=== PATIENT | male | born 1965 | race Caucasian/White ===

== ENCOUNTER 2020-05-28 20:21 | Inpatient (IN) | payer BC ==
[~2020-05-28] VITALS: Ht 175.3 cm; Wt 80.0 kg
--- NOTE | 2020-05-28 20:48 | NUR ---
pt placed into room 12 with precautions and hepa filter.
[2020-05-28] MEDS ORDERED: normal saline 1000ml 1,000 ML IV ONE (21:15)
[2020-05-28 21:32] LABS: BASOPHILS % (AUTO) 0.3 % (0-1); EOSINOPHILS % (AUTO) 0.4 % (0-6); HEMOGLOBIN 15.8 g/dl (14.0-17.9); LYMPHOCYTES # (AUTO) 0.5 X10'3 (1.1-4.8); LYMPHOCYTES % (AUTO) 19.1 % (21-51); MEAN CORPUSCULAR HEMOGLOBIN 30.1 PG (27.0-31.0); MEAN CORPUSCULAR HGB CONC 34.3 g/dL (33.0-36.5); MEAN CORPUSCULAR VOLUME 87.5 FL (78-98); MEAN PLATELET VOLUME 8.1 FL (7.4-10.4); MONOCYTES # (AUTO) 0.2 X10'3 (0-0.9); MONOCYTES % (AUTO) 8.4 % (2-12); NEUTROPHILS % (AUTO) 71.8 % (42-75); PLATELET COUNT 118 X10'3 (140-440); RED BLOOD COUNT 5.26 X10'6 (4.70-6.10); RED CELL DISTRIBUTION WIDTH 12.9 % (11.5-14.5); WHITE BLOOD COUNT 2.7 X10'3 (4.5-11.0)
--- NOTE | 2020-05-28 21:33 | NUR ---
WHILE WITH PT, PT STATES HE RECEIVED A TXT FROM HIS STATING THEIR COVID-19 RESULT WAS POSITIVE. STATES THEY WERE RECENTLY TESTED AT [facility] Explain My Surgery A FEW DAYS AGO
[2020-05-28 21:49] LABS: ALANINE AMINOTRANSFERASE 87 U/L (12-78); ALBUMIN 3.8 G/DL (3.4-5.0); ALKALINE PHOSPHATASE 70 IU/L (46-116); ANION GAP 11 (8-16); ASPARTATE AMINO TRANSFERASE 43 U/L (10-37); BILIRUBIN,TOTAL 0.4 MG/DL (0.1-1.0); BLOOD UREA NITROGEN 18 MG/DL (7-18); BUN/CREATININE RATIO 16.7 (5.4-32.0); CALCIUM 8.6 MG/DL (8.5-10.1); CHLORIDE 104 MMOL/L (99-107); CREATININE 1.08 MG/DL (0.60-1.10); GLUCOSE 104 MG/DL (70-104); POTASSIUM 3.8 MMOL/L (3.5-5.1); SODIUM 141 MMOL/L (135-145); TOTAL CARBON DIOXIDE 26.5 MMOL/L (24-32); TOTAL PROTEIN 7.8 G/DL (6.4-8.2); eGFR 71 ML/MIN
[2020-05-28 21:52] LABS: PLATELET ESTIMATE DECREASED; TOTAL CELLS COUNTED 100
[2020-05-28] MEDS ORDERED: AZIT-63 PO ×2 (22:07→22:21)
[2020-05-28] MEDS ORDERED: DEC1T PO (22:07)
[2020-05-28] MEDS ORDERED: ALBU8HFA PO (22:07)
[2020-05-28] MEDS ORDERED: DEC4T PO (22:21)
[2020-05-28 22:40] LABS: CLARITY,URINE CLEAR (Clear); COLOR,URINE YELLOW (Yellow); GLUCOSE, URINE NEGATIVE (Neg); KETONES,URINE NEGATIVE (Neg); LEUKOCYTE ESTERASE ,URINE NEGATIVE (Neg); NITRITES, URINE NEGATIVE (Neg); OCCULT BLOOD,URINE NEGATIVE (Neg); PROTEIN,URINE NEGATIVE (Neg); UROBILINOGEN,URINE 0.2 E.U/dL (0.2-1.0)
[2020-05-28] MEDS ORDERED: ibuprofen tablet 400 MG TABLET PO PRN (22:40)
[2020-05-28] MEDS ORDERED: magnesium Cl slow-release 64mg tablet PO PRN (22:40)
[2020-05-28] MEDS ORDERED: magnesium 4gm in 100ml NS 100 ML IV PRN (22:40)
[2020-05-28] MEDS ORDERED: potassium CL 10mEq/100ml bag 100 ML IV PRN ×2 (22:40)
[2020-05-28] MEDS ORDERED: mag hydrox/Alum hydrox/simeth 30ml oral suspension PO PRN (22:40)
[2020-05-28] MEDS ORDERED: magnesium hydroxide 30ml (MOM) UD suspension PO PRN (22:40)
[2020-05-28] MEDS ORDERED: acetaminophen 325mg tablet PO PRN (22:40)
[2020-05-28] MEDS ORDERED: HYDROcodone/acetaminophen 5mg/325mg tablet PO PRN (22:40)
[2020-05-28] MEDS ORDERED: bisacodyl 10mg suppository rectal RC PRN (22:40)
[2020-05-28] MEDS ORDERED: ondansetron/PF 4mg/2ml inj IV PRN (22:40)
[2020-05-28] MEDS ORDERED: magnesium 2GM in 50ml NS 50 ML IV PRN (22:40)
[2020-05-28] MEDS ORDERED: potassium Cl 20 mEq SR tablet PO PRN ×2 (22:40)
[2020-05-28 22:51] LABS: UA COLLECTION TYPE URINAL
[2020-05-29 00:45] VITALS: BP 125/84
[2020-05-29 03:00] VITALS: BP 120/77
[2020-05-29 03:18] LABS: BASOPHILS % (AUTO) 0.2 % (0-1); EOSINOPHILS % (AUTO) 0 % (0-6); HEMATOCRIT 42.3 % (42.0-52.0); HEMOGLOBIN 14.3 g/dl (14.0-17.9); LYMPHOCYTES # (AUTO) 0.6 X10'3 (1.1-4.8); MEAN CORPUSCULAR HEMOGLOBIN 29.8 PG (27.0-31.0); MEAN CORPUSCULAR HGB CONC 33.9 g/dL (33.0-36.5); MEAN CORPUSCULAR VOLUME 87.9 FL (78-98); MEAN PLATELET VOLUME 8.2 FL (7.4-10.4); MONOCYTES # (AUTO) 0.1 X10'3 (0-0.9); MONOCYTES % (AUTO) 7.3 % (2-12); NEUTROPHILS # (AUTO) 1.1 X10'3 (1.8-7.7); NEUTROPHILS % (AUTO) 62.5 % (42-75); PLATELET COUNT 110 X10'3 (140-440); RED BLOOD COUNT 4.81 X10'6 (4.70-6.10); RED CELL DISTRIBUTION WIDTH 12.8 % (11.5-14.5); WHITE BLOOD COUNT 1.8 X10'3 (4.5-11.0)
[2020-05-29 03:34] LABS: ALANINE AMINOTRANSFERASE 77 U/L (12-78); ALBUMIN 3.2 G/DL (3.4-5.0); ALBUMIN/GLOBULIN RATIO 0.9 (1.1-1.5); ALKALINE PHOSPHATASE 58 IU/L (46-116); ANION GAP 8 (8-16); ASPARTATE AMINO TRANSFERASE 41 U/L (10-37); BILIRUBIN,TOTAL 0.4 MG/DL (0.1-1.0); BLOOD UREA NITROGEN 15 MG/DL (7-18); BUN/CREATININE RATIO 15.3 (5.4-32.0); CHLORIDE 107 MMOL/L (99-107); CREATININE 0.98 MG/DL (0.60-1.10); GLUCOSE 109 MG/DL (70-104); MAGNESIUM 1.9 MG/DL (1.5-2.4); POTASSIUM 4.4 MMOL/L (3.5-5.1); SODIUM 141 MMOL/L (135-145); TOTAL CARBON DIOXIDE 25.7 MMOL/L (24-32); TOTAL PROTEIN 6.8 G/DL (6.4-8.2); eGFR 79 ML/MIN
[2020-05-29 03:39] LABS: TOTAL CELLS COUNTED 100
[2020-05-29 03:40] LABS: PLATELET ESTIMATE DECREASED
--- NOTE | 2020-05-29 06:10 | NUR ---
Problems reprioritized. Patient report given, questions answered & plan of care reviewed with Nayeli NIXON.
--- NOTE | 2020-05-29 06:14 | NUR ---
Patient in room [facility]TH[facility] 4006. I have received report from Ashli Clemons and had the opportunity to ask questions and assume patient care.
[2020-05-29] MEDS ORDERED: docusate sod 100mg capsule PO SCH (08:00)
[2020-05-29] MEDS ORDERED: K and/or MAG REPLACEMENT MC SCH (08:00)
[2020-05-29] MEDS ORDERED: azithromycin 250mg tablet PO SCH (08:00)
[2020-05-29 08:34] VITALS: BP 129/81
[2020-05-29 13:00] VITALS: BP 116/83
--- NOTE | 2020-05-29 16:37 | NUR ---
Patient stable for discharge home today. All discharge instructions given to patient and questions answered. IV discontinued and cannula intact.
== END 2020-05-29 16:30 | disposition home or self-care (01) | DRG 177 ==
LOC: ER 20:22 → UNDOADMIN 22:40 → ORTHO 4S 22:40
PROVIDERS: ADMIT Family Medicine; ATTEND Family Medicine
DX: U07.1 COVID-19 (principal); J96.01 Acute respiratory failure with hypoxia
CPT/HCPCS: 36415; 71045; 80053; 81003; 83605; 83735; 85025; 87040; 87081; 93005; 94760; 99285; G0378; J7030